=== PATIENT | female | born 1980 | race Caucasian/White ===

== ENCOUNTER 2024-09-30 09:51 | Day surgery (SDC) | payer OTHER ==
[2024-09-30] MEDS: Ringers Lactate 1,000 ML IV ONE (10:15)
[2024-09-30 11:12] LABS: Albumin 3.6 g/dL (3.4-5.0); Albumin/Globulin Ratio 0.9 (1.1-1.8); Bilirubin Total 0.4 mg/dL (0.2-1.0); Globulin 3.8 g/dL (2.3-3.5); Protein, Total 7.4 g/dL (6.4-8.2)
[2024-09-30] MEDS ORDERED: NEOSTIGMINE 1 MG/ML -10 ML VIAL ONE (11:45)
[2024-09-30] MEDS ORDERED: LIDOCAINE 2% MPF 5 ML VIAL ONE (11:45)
[2024-09-30] MEDS ORDERED: ONDANSETRON 4 MG/2 ML VIAL ONE (11:45)
[2024-09-30] MEDS ORDERED: GLYCOPYRROLATE 0.2 MG/ML SYR ONE (11:45)
[2024-09-30] MEDS ORDERED: ROCURONIUM 50 MG/5 ML VIAL IV ONE (11:45)
[2024-09-30] MEDS ORDERED: FENTANYL CITR 100 MCG/2 ML ONE ×2 (11:45→12:28)
[2024-09-30] MEDS ORDERED: propofoL 200 MG/20 ML VIAL IV ONE (11:45)
[2024-09-30] MEDS ORDERED: MIDAZOLAM HCL 2 MG/2 ML INJ ONE (11:45)
[2024-09-30] MEDS: CEFOXITIN SODIUM 2 GM/VIAL ONE (12:15)
[2024-09-30] MEDS ORDERED: dexAMETHasone 4 MG/ML VIAL ONE (12:28)
[2024-09-30] MEDS: LIDOCAINE HCL/EPINEPHRINE 20 ML MDV ONE (12:38)
[2024-09-30] MEDS ORDERED: KETOROLAC 30 MG/ML INJ ONE (13:06)
[2024-09-30] MEDS ORDERED: MEPERIDINE HCL 25 MG/ML SYR ONE (13:07)
--- NOTE | 2024-09-30 13:10 | P.OP ---
Preoperative diagnosis: Chronic Cholecystitis Postoperative diagnosis: Chronic Cholecystitis Primary procedure: Laparoscopic Cholecystectomy with ICG Cholangiography Anesthesia: GETA + Local Estimated blood loss: <5cc Specimen: Gallbladder Findings: Chronic Cholecystitis with adhesions Complications: None Transferred to: Recovery Room Condition: Good
[2024-09-30] MEDS ORDERED: CODEINE 30MG/APAP 300MG TAB PO ONE (14:22)
[2024-09-30] MEDS: CODEINE 30MG/APAP 300MG TAB ONE (14:25)
--- NOTE | 2024-09-30 14:50 | OP ---
Date of Procedure: 09/30/2024 Surgeon: Miky Starr MD, Preoperative Diagnosis: Chronic cholecystitis. Postoperative Diagnosis: Chronic cholecystitis. Procedure Performed: Laparoscopic cholecystectomy with indocyanine green cholangiography. Anesthesia: General endotracheal plus local with 1% lidocaine with epinephrine. Estimated Blood Loss: Less than 5 cc. Specimen: Gallbladder. Findings: Chronic cholecystitis with adhesions. Complications: None. Disposition: The patient transferred to recovery room in good condition. Procedure In Detail: After informed consent was obtained, patient was brought to the operating room, prepped and draped in the usual sterile fashion after adequate anesthesia was achieved. I anestheti zed an area of supraumbilical position down to subcutaneous tissues. 5-mm 0-degree optical trocar wa s introduced into the abdomen without incident or complication. Insufflation was obtained to 15 mmHg , at this time. There was no injury to vital structures upon entry into the abdomen. Two additional trocars were placed, one in the epigastrium, and one in the right upper quadrant. Both of these wer e similarly anesthetized and sharply incised. A 5 mm trocar was placed under direct visualization wi thout incident or complication. The umbilical trocar was then upsized to 12 mm under direct visualiz ation without incident or complication. The patient was positioned head up right-side up position. Ratcheted grasper was used to grasp the patient's gallbladder placed towards patient's right shoulder . Dissection was continued down the Seun pouch of the gallbladder, ultimately dissecting out two structures identified both cystic duct and cystic artery. These structures were skeletonized and th e critical view of safety was obtained at this point. I then performed indocyanine green cholangiogr aphy, confirmed the anatomic landmarks as described above. Double titanium clips were placed doubly on the proximal side and singly on the distal side of both cystic duct and cystic artery. These stru ctures were then ligated between Endo Keira under direct visualization without incident or complicat ion. The gallbladder was then removed from the hepatic fossa without incident or complication using electrocautery, placed in EndoCatch bag, and removed through the umbilical trocar and sent off for pa thologic examination. The abdomen was re-insufflated, at this point. The right upper quadrant was c opiously irrigated and suctioned out. There was no spillage of bile throughout the procedure. The e ffluent was suctioned out. Patient was positioned back in neutral position. Remainder of effluent w as suctioned out. At this point, the 12 mm trocar site was closed using a Dru-Bryson suture pas ser with 0 Vicryl in an interrupted fashion with good approximation of tissues. The abdomen was desu fflated under direct visualization without incident or complication. The remainder of trocars were r emoved. All skin incisions were then copiously irrigated and closed with a 4-0 Monocryl in a running fashion. Dermabond was placed over top. The patient tolerated procedure without incident or compli cation, and transferred to PACU in good condition. All counts were correct at the end of the case. TK/MODL Voice ID: [id number] Report ID: [id number]
[2024-09-30 15:11] VITALS: BP 137/79; TEMP 97.4
[2024-09-30 15:18] VITALS: O2SAT 10
== END 2024-09-30 14:55 | disposition home or self-care (01) ==
LOC: OR 09:51
PROVIDERS: ATTEND Surgery
PROC: BF50200 Other Imaging of Bile Ducts using Fluorescing Agent, Indocyanine Green Dye, Intraoperative (ICD-10-PCS; 2024-09-30)
PROC: 0FT44ZZ Resection of Gallbladder, Percutaneous Endoscopic Approach (ICD-10-PCS; principal; 2024-09-30 13:00)
DX: K80.10 Calculus of gallbladder with chronic cholecystitis without obstruction (principal)
CPT/HCPCS: 36415; 81025; 88304; 80053; 47562; J2704; J1100; J2710; J2003; J2250; J3010 ×2; J2175; J0694; J2405; J7120